=== PATIENT | male | born 1960 | race Caucasian/White ===

== ENCOUNTER 2022-12-06 10:05 | Day surgery (SDC) | payer OTHER, SELFPAY ==
[2022-12-06 10:15] VITALS: BP 147/85; PULSE 65; RESP 16; TEMP 36.3; O2SAT 98; BMI 26.9
[2022-12-06] MEDS: LACTATED RINGERS 1,000 ML 42 ML IV (10:44)
--- NOTE | 2022-12-06 11:18 | P.HP_ITS ---
History of Present Illness History of Present Illness Date Patient Seen: 12/06/22 Time Patient Seen: 11:19 Chief complaint: Colonoscopy Narrative: 62-year-old man no prior colonoscopy with a positive fecal immunochemical test here for diagnostic colonoscopy. They have never had any previous examination for such. No personal or family history of colon cancer. On further history denies any recent gastrointestinal symptoms. No nausea, vomiting, abdominal pain, loss of appetite, unexplained weight loss, change in bowel habits, or blood per rectum. [facility] Social History household members: spouse Smoking Status: Never smoker alcohol intake: current Meds Home Medications and Allergies Home Medications Medication Instructions Recorded Confirmed Type sodium,potassium,mag sulfates 17.5 See Rx Instructions PO .COMPLEX 11/11/22 Rx gram-3.13 gram-1.6 gram oral soln #354 mL (Suprep Bowel Prep Kit) Allergies Allergy/AdvReac Type Severity Reaction Status Date / Time No Known Drug Allergies Allergy Verified 12/06/22 10:43 Exam Vital Signs (past 8 hours): - 12/06/22 10:15 Temperature 97.4 F L Pulse Rate 65 Respiratory Rate 16 Blood Pressure 147/85 H Pulse Oximetry 98 Oxygen Delivery Method Room Air Oxygen Delivery Method Room Air Narrative Exam Narrative: General adult man alert oriented no acute distress Assessment & Plan Assessment and plan (1) Positive FIT (fecal immunochemical test): Status: Acute Assessment & Plan narrative: 62-year-old man with a positive fecal immunochemical test here for diagnostic colonoscopy.. Technical details were discussed. Risks, benefits, alternatives explained. Risks including but not limited to myocardial infarction, aspiration, bleeding, pain, missed lesion, incomplete examination, need for further radiographic studies, colonic perforation, and need for major abdominal surgery were discussed. All questions were answered to their satisfaction, and they are in agreement with this plan.
[2022-12-06 11:45] VITALS: BP 116/78; PULSE 69; RESP 16; TEMP 36.1; O2SAT 95
[2022-12-06 11:51] VITALS: BP 115/78; PULSE 61; RESP 20; O2SAT 94
--- NOTE | 2022-12-06 11:51 | PM.OP.COLON ---
Operative Date/Time/Diagnoses Date of procedure: 12/06/22 Time of procedure: 11:51 Pre-op diagnosis: Positive fecal immunochemical test Post-op diagnosis: same Procedure & Clinicians Study performed: Colonoscopy Same procedure as scheduled: Yes Indications: 62-year-old man with a positive fecal immunochemical test here for diagnostic colonoscopy Surgeon: Tom Mahan Procedure Notes Procedure in detail: The history and physical was performed/updated and the patient is ASA class is on. The procedure was discussed in detail with the patient. Potential risks complications including infection, bleeding, missed diagnosis, perforation, need for surgery, and were explained. Their questions were answered and informed consent was obtained. Patient was brought to the procedure room and placed standard monitoring equipment. The patient's vital signs were monitored continuously throughout the entire procedure. Prior to starting time-out was performed. The patient was placed in the left lateral recumbent position. Procedural sedation was administered by anesthesia. Examination began with a thorough inspection of the perianal area there was no evidence of fissures, fistulae, external hemorrhoids or cutaneous malignancy. The colonoscopy scope was then placed into the anal canal and was advanced to the cecum, which was identified by the ileocecal valve, the appendiceal orifice and the confluence of the taenia. The scope was then slowly withdrawn examining colon thoroughly in all directions, irrigating it of any residual stool. Unremarkable colonoscopy. No masses or polyps. Mild diverticulosis of the sigmoid colon and grade 1 internal hemorrhoids on retroflexion within the rectum. The patient tolerated the procedure well. They will be discharged once criteria are met. The prep was of good/excellent quality. The withdrawl time was 7 minutes. Specimen(s): none sent Impression: Normal colonoscopy Post-procedure Recommendations: Colonoscopy in 10 years and High fiber diet Disposition: same day surgery
[2022-12-06 11:55] VITALS: BP 122/74; PULSE 60; RESP 16; O2SAT 95
[2022-12-06 12:05] VITALS: BP 133/58; PULSE 64; RESP 16; TEMP 36.4; O2SAT 98
== END 2022-12-06 12:13 | disposition home or self-care (01) ==
PROVIDERS: PCP Family Medicine; Referring Provider Surgery; Visit Provider Surgery
PROC: 0DJD8ZZ Inspection of Lower Intestinal Tract, Via Natural or Artificial Opening Endoscopic (ICD-10-PCS; CPT 45378; principal; 2022-12-06 11:15)
DX: R19.5 Other fecal abnormalities (principal); Z12.11 Encounter for screening for malignant neoplasm of colon; K57.30 Diverticulosis of large intestine without perforation or abscess without bleeding; K64.0 First degree hemorrhoids
CPT/HCPCS: 45378; J2704